=== PATIENT | female | born 1975 | race Caucasian/White ===

== ENCOUNTER 2018-02-07 11:21 | Emergency (ER) | payer BC ==
[2018-02-07 11:29] VITALS: BP 135/83; PULSE 71; TEMP 98.1; BMI 27.8
--- NOTE | 2018-02-07 12:07 | PDOC ---
History of Present Illness - General Chief Complaint: Headache Stated Complaint: HEAD PAIN Time Seen by Provider: 02/07/18 11:32 History Source: Patient Exam Limitations: No Limitations - History of Present Illness Initial Comments: 02/07/18 12:03 42 yr female with head injury 7 weeks ago states she has continued headaches left side of head. Pt has history of anemia. Severity: Yes: moderate Past History - Past Medical History Allergies/Adverse Reactions: Allergies Allergy/AdvReac Type Severity Reaction Status Date / Time No Known Allergies Allergy Verified 02/07/18 11:29 Home Medications: Ambulatory Orders NK [No Known Home Medication] 02/07/18 CVA: No COPD: No Other medical history: anemia, thyroid disease - Surgical History Abdominal Surgery: Yes (gastric sleeve) - Suicide/Smoking/Psychosocial Hx Smoking History: Never smoked Information on smoking cessation initiated: Yes Hx Alcohol Use: No Drug/Substance Use Hx: No Substance Use Type: None Neuro Specific PMHX - Complaint Specific PMHX Glaucoma: No Herniated Disk: No Laminectomy: No Migraine: No Multiple Sclerosis: No Neuropathy: No TIA: No Review of Systems - Review of Systems Able to Perform ROS?: Yes Is the patient limited [place]an proficient: No Constitutional: No: Symptoms Reported HEENTM: No: Symptoms Reported Respiratory: No: Symptoms reported Cardiac (ROS): No: Symptoms Reported ABD/GI: No: Symptoms Reported : No: Symptoms Reported Musculoskeletal: No: Symptoms Reported Integumentary: No: Symptoms Reported Neurological: Yes: Symptoms reported, Headache *Physical Exam - Vital Signs Last Vital Signs Temp Pulse Resp BP Pulse Ox 98.1 F 71 18 135/83 98 02/07/18 11:26 02/07/18 11:26 02/07/18 11:26 02/07/18 11:26 02/07/18 11:26 - Physical Exam General Appearance: Yes: Nourished, Appropriately Dressed HEENT: positive: EOMI, ALLEN, Normal ENT Inspection, TMs Normal, Pharynx Normal, Rhinorrhea (clear ) Neck: positive: Supple Respiratory/Chest: positive: Lungs Clear, Normal Breath Sounds Cardiovascular: positive: Regular Rhythm, Regular Rate Gastrointestinal/Abdominal: positive: Normal Bowel Sounds, Soft. negative: Tender Musculoskeletal: positive: Normal Inspection Extremity: positive: Normal Capillary Refill, Normal Inspection, Normal Range of Motion Integumentary: positive: Normal Color, Dry, Warm Neurologic: positive: Fully Oriented, Alert, Normal Mood/Affect, Normal Response , Motor Strength 5/5 Medical Decision Making - Medical Decision Making 02/07/18 12:05 cc: headache after hitting head on the wall 7 weeks ago no LOC pt was dizzy from her anemia prior to the fall pt has continued headache "soreness to scalp left side" since the headache neg nausea or vomiting *DC/Admit/Observation/Transfer Diagnosis at time of Disposition: Headache Qualifiers: Headache type: unspecified Headache chronicity pattern: acute headache Intractability: not intractable Qualified Code(s): R51 - Headache - Discharge Dispostion Disposition: HOME Condition at time of disposition: Good - Referrals Referrals: Rufino Velázquez MD [Staff Physician] - Timoteo Sandoval MD [Staff Physician] - - Patient Instructions Additional Instructions: follow with the neurologist if symptoms continue take tylenol 650mg every 4-6hrs for headache as needed if you are suffering from seasonal allergies you can use Rhinicort or Flonase ( sold over the counter) please follow with your primary care doctor or with the group listed below for further care return to ER for any worsening symptoms - Post Discharge Activity
== END 2018-02-07 13:34 | disposition home or self-care (01) ==
LOC: JERFT 11:21
DX: R51 Headache (principal); W22.01XA Walked into wall, initial encounter; Y93.89 Activity, other specified; Y92.9 Unspecified place or not applicable
CPT/HCPCS: 70450-TC; 84703; 99281-25

== ENCOUNTER 2018-05-16 11:33 | Emergency (ER) | payer BC ==
[2018-05-16 11:39] VITALS: BP 123/57; PULSE 80; TEMP 98; BMI 27.6
[2018-05-16] MEDS ORDERED: KETOROLAC TROMETHAMINE 60 MG/2 ML VIAL IM ONE (12:44)
--- NOTE | 2018-05-16 12:50 | PDOC ---
History of Present Illness - General Chief Complaint: Pain Stated Complaint: Left armpit pain, feeling anxious about it Time Seen by Provider: 05/16/18 12:31 History Source: Patient Exam Limitations: No Limitations - History of Present Illness Initial Comments: 05/16/18 12:45 43 yr female history of anemia, anxiety, hypothryoid states one week pain to left shoulder upper back and neck worse at night when lying down. no nausea no chest pain no sob. Past History - Past Medical History Allergies/Adverse Reactions: Allergies Allergy/AdvReac Type Severity Reaction Status Date / Time No Known Allergies Allergy Verified 05/16/18 11:39 Home Medications: Ambulatory Orders Diazepam [Valium] 5 mg PO Q8H PRN #12 tablet MDD 15mg 05/16/18 Naproxen [Naprosyn] 500 mg PO BID PRN #20 tablet 05/16/18 CVA: No COPD: No Thyroid Disease: Yes - Surgical History Abdominal Surgery: Yes (gastric sleeve, tubal ligation) - Suicide/Smoking/Psychosocial Hx Smoking History: Never smoked Information on smoking cessation initiated: No Hx Alcohol Use: No Drug/Substance Use Hx: No Substance Use Type: None *Physical Exam - Vital Signs Last Vital Signs Temp Pulse Resp BP Pulse Ox 98 F 80 17 123/57 L 100 05/16/18 11:36 05/16/18 11:36 05/16/18 11:36 05/16/18 11:36 05/16/18 11:36 - Physical Exam General Appearance: Yes: Nourished, Appropriately Dressed HEENT: positive: EOMI, ALLEN Neck: positive: Supple, Tender lateral (left trapezius muscle TTP). negative: Tender Respiratory/Chest: positive: Lungs Clear, Normal Breath Sounds Gastrointestinal/Abdominal: positive: Normal Bowel Sounds, Soft Musculoskeletal: positive: Normal Inspection Extremity: positive: Normal Capillary Refill, Normal Range of Motion, Tender ( anterior shoulder , reproducable with movement and to touch to the posterior shoulder to upper back muscles , nv intact) Integumentary: positive: Normal Color, Dry, Warm Neurologic: positive: Fully Oriented, Alert, Normal Mood/Affect, Normal Response , Motor Strength 5/5 Moderate Sedation - Procedure Monitoring Vital Signs: Procedure Monitoring Vital Signs Temperature 98 F 05/16/18 11:36 Pulse Rate 80 05/16/18 11:36 Respiratory Rate 17 05/16/18 11:36 Blood Pressure 123/57 L 05/16/18 11:36 O2 Sat by Pulse Oximetry (%) 100 05/16/18 11:36 Medical Decision Making - Medical Decision Making 05/16/18 12:50 cc: left shoulder pain to neck upper back one week intermittent worse at night took motrin with some relief, relieved after hot shower worse at night reproducable to touch will treat for muscle spasm toradol now dc with valium and naprosyn follow up with ortho *DC/Admit/Observation/Transfer Diagnosis at time of Disposition: Muscle spasms of neck Shoulder pain, left Qualifiers: Chronicity: acute Qualified Code(s): M25.512 - Pain in left shoulder - Discharge Dispostion Disposition: HOME Condition at time of disposition: Good - Prescriptions Prescriptions: Diazepam [Valium] 5 mg PO Q8H PRN #12 tablet MDD 15mg PRN Reason: Muscle Spasms Naproxen [Naprosyn] 500 mg PO BID PRN #20 tablet PRN Reason: Pain - Referrals Referrals: Danyel Balbuena MD [Staff Physician] - - Patient Instructions Printed Discharge Instructions: DI for Cervical Radiculopathy Additional Instructions: take the medications as prescribed apply heating pad to neck and upper back often every few hours for 30 minutes sleep without a pillow if that helps your symptoms follow with the orthopedist if symptoms do not improve or worsen - Post Discharge Activity
[2018-05-16] MEDS ORDERED: KETOROLAC TROMETHAMINE 60 MG/2 ML VIAL ONE (12:59)
== END 2018-05-16 13:07 | disposition home or self-care (01) ==
LOC: JERFT 11:33
PROC: 3E0233Z Introduction of Anti-inflammatory into Muscle, Percutaneous Approach (ICD-10-PCS; principal; 2018-05-16)
DX: M62.838 Other muscle spasm (principal); M25.512 Pain in left shoulder; E03.9 Hypothyroidism, unspecified; D64.9 Anemia, unspecified; F41.9 Anxiety disorder, unspecified
CPT/HCPCS: 99281-25

== ENCOUNTER 2018-05-25 20:52 | Emergency (ER) | payer BC ==
[2018-05-25 22:26] VITALS: BP 130/67; PULSE 77; TEMP 98.5; BMI 27.8
--- NOTE | 2018-05-25 22:58 | PDOC ---
History of Present Illness - General History Source: Patient Exam Limitations: No Limitations - History of Present Illness Initial Comments: 05/25/18 23:04 43YOF with a PMH of iron deficiency anemia, anxiety, and hypothyroidism presenting with epigastric pain since yesterday. Patient states the epigastric pain is nonradiating, that began in the setting of being upset, which was a 7/ 10 in severity then but is now a 5/10. Patient noticed the epigastric pain was exacerbated after drinking orange juice but improved after drinking milk. Patient does not currently have a PCP. Patient was seen in this ED for left sided musculoskeletal pain on 05/16. Allergies: NKDA Surgeries: Gastric sleeve in 2013 Social history: No reported alcohol, drug or cigarette use. <Bella West - Last Filed: 05/25/18 23:46> <Barbara Vee - Last Filed: 05/26/18 01:38> - General Chief Complaint: Pain Stated Complaint: ABD PAIN Time Seen by Provider: 05/25/18 22:58 Past History <Bella West - Last Filed: 05/25/18 23:46> - Past Medical History CVA: No COPD: No Thyroid Disease: Yes - Surgical History Abdominal Surgery: Yes (gastric sleeve, tubal ligation) - Suicide/Smoking/Psychosocial Hx Smoking History: Never smoked Hx Alcohol Use: No Drug/Substance Use Hx: No Substance Use Type: None <Barbara Vee - Last Filed: 05/26/18 01:38> - Past Medical History Allergies/Adverse Reactions: Allergies Allergy/AdvReac Type Severity Reaction Status Date / Time No Known Allergies Allergy Verified 05/26/18 00:37 Home Medications: Ambulatory Orders Levothyroxine [Synthroid -] 150 mcg PO DAILY 05/25/18 Review of Systems - Review of Systems Able to Perform ROS?: Yes Comments:: 05/25/18 23:47 ADULT ROS GENERAL/CONSTITUTIONAL: No fever or chills. No weakness. HEAD, EYES, EARS, NOSE AND THROAT: No change in vision. No ear pain or discharge. No sore throat. CARDIOVASCULAR: No chest pain or shortness of breath. RESPIRATORY: No cough, wheezing, or hemoptysis. GASTROINTESTINAL: No nausea, vomiting, diarrhea or constipation. (+) Epigastric pain. GENITOURINARY: No dysuria, frequency, or change in urination. MUSCULOSKELETAL: No joint or muscle swelling or pain. No neck or back pain. SKIN: No rash NEUROLOGIC: No headache, vertigo, loss of consciousness, or change in strength/ sensation. ENDOCRINE: No increased thirst. No abnormal weight change. HEMATOLOGIC/LYMPHATIC: No anemia, easy bleeding, or history of blood clots. ALLERGIC/IMMUNOLOGIC: No hives or skin allergy. <Bella West - Last Filed: 05/25/18 23:46> *Physical Exam - Vital Signs Last Vital Signs Temp Pulse Resp BP Pulse Ox 98.5 F 77 19 130/67 100 05/25/18 22:23 05/25/18 22:23 05/25/18 22:23 05/25/18 22:23 05/25/18 22:23 - Physical Exam Comments: 05/25/18 23:46 ADULT EXAM GENERAL: Awake, alert, and fully oriented, in no acute distress HEAD: No signs of trauma LUNGS: Breath sounds equal, clear to auscultation bilaterally. No wheezes, and no crackles HEART: Regular rate and rhythm, normal S1 and S2, no murmurs, rubs or gallops ABDOMEN: (+) Epigastric tenderness. Soft, normoactive bowel sounds. No guarding , no rebound. No masses EXTREMITIES: Normal range of motion, no edema. No clubbing or cyanosis. No cords, erythema, or tenderness NEUROLOGICAL: Cranial nerves II through XII grossly intact. SKIN: Warm, Dry, normal turgor, no rashes or lesions noted. <Bella West - Last Filed: 05/25/18 23:46> - Vital Signs Last Vital Signs Temp Pulse Resp BP Pulse Ox 98.5 F 77 19 130/67 100 05/25/18 22:23 05/25/18 22:23 05/25/18 22:23 05/25/18 22:23 05/25/18 22:23 <Barbara Vee - Last Filed: 05/26/18 01:38> Moderate Sedation - Procedure Monitoring Vital Signs: Procedure Monitoring Vital Signs Temperature 98.5 F 05/25/18 22:23 Pulse Rate 77 05/25/18 22:23 Respiratory Rate 19 05/25/18 22:23 Blood Pressure 130/67 05/25/18 22:23 O2 Sat by Pulse Oximetry (%) 100 05/25/18 22:23 <Bella West - Last Filed: 05/25/18 23:46> - Procedure Monitoring Vital Signs: Procedure Monitoring Vital Signs Temperature 98.5 F 05/25/18 22:23 Pulse Rate 77 05/25/18 22:23 Respiratory Rate 19 05/25/18 22:23 Blood Pressure 130/67 05/25/18 22:23 O2 Sat by Pulse Oximetry (%) 100 05/25/18 22:23 <Barbara Vee - Last Filed: 05/26/18 01:38> ED Treatment Course - LABORATORY CBC & Chemistry Diagram: 05/25/18 23:10 05/25/18 23:10 <Bella West - Last Filed: 05/25/18 23:46> - LABORATORY CBC & Chemistry Diagram: 05/25/18 23:10 05/25/18 23:10 <Barbara Vee - Last Filed: 05/26/18 01:38> Medical Decision Making - Medical Decision Making 05/26/18 00:10 Pt has known anemia; she is guaiac negative. 05/26/18 01:36 Patient Name: ZOILA JOSEPH THIS IS A PRELIMINARY REPORT FROM [facility] DATE OF SERVICE: 2018-05-25 23:51:19 IMAGES: 43 EXAM: ULTRASOUND ABDOMEN INCOMPLETE Unremarkable gallbladder, right kidney and visualized aorta and pancreas. Minimal hepatomegaly. Normal common duct diameter, 4 mm. THIS DOCUMENT HAS BEEN ELECTRONICALLY SIGNED <Barbara Vee - Last Filed: 05/26/18 01:38> *DC/Admit/Observation/Transfer - Attestations Scribe Attestion: 05/25/18 23:47 Documentation prepared by Bella West, acting as medical collections representative for Barbara Vee MD <Bella West - Last Filed: 05/25/18 23:46> - Discharge Dispostion Decision to Admit order: No <Barbara Vee - Robert Filed: 05/26/18 01:38> Diagnosis at time of Disposition: Anxiety, Anemia - Discharge Dispostion Disposition: HOME Condition at time of disposition: Stable - Patient Instructions Printed Discharge Instructions: Anemia, DI for Anxiety -- Adult
[2018-05-25] MEDS ORDERED: MAG HYDROX/AL HYDROX/SIMETH 30 ML UNIT-DOSE CUP PO ONE (23:01)
[2018-05-25] MEDS ORDERED: MAG HYDROX/AL HYDROX/SIMETH 30 ML UNIT-DOSE CUP ONE (23:05)
[2018-05-25 23:21] LABS: BASO % 0.6 % (0-2.0); EOS % 0.8 % (0-4.5); HEMATOCRIT 23.3 % (32.4-45.2); HEMOGLOBIN 7.2 GM/dL (10.7-15.3); MCHC 31.1 g/dl (32.0-36.0); MEAN CELL VOLUME 62.8 fl (80-96); MEAN PLT VOLUME 8.2 fl (7.5-11.1); MONO % 7.9 % (3.8-10.2); NEUT % 50.7 % (42.8-82.8); PLATELET COUNT 307 K/MM3 (134-434); RDW 19.9 % (11.6-15.6); WHITE BLOOD COUNT 4.7 K/mm3 (4.0-10.0)
[2018-05-25 23:25] LABS: MCH 19.6 pg (25.7-33.7)
[2018-05-25 23:49] LABS: ALBUMIN 3.5 g/dl (3.4-5.0); BILIRUBIN,TOTAL 0.2 mg/dL (0.2-1); BLOOD UREA NITROGEN 16 mg/dL (7-18); CALCIUM 8.6 mg/dL (8.5-10.1); CHLORIDE 106 mmol/L (98-107); CREATININE 0.6 mg/dL (0.55-1.3); GLUCOSE,RANDOM 114 mg/dL (74-106); POTASSIUM 3.9 mmol/L (3.5-5.1); SGOT/AST 14 U/L (15-37); SGPT/ALT 14 U/L (13-61); SODIUM 140 mmol/L (136-145); TOT PROT 7.4 g/dl (6.4-8.2)
[2018-05-25 23:50] LABS: ALK PHOS 48 U/L (45-117); ANION GAP 5 MMOL/L (8-16); CO2 29 mmol/L (21-32)
[2018-05-25 23:56] LABS: ANISOCYTOSIS 1+; PLATELET ESTIMATE ADEQUATE
--- NOTE | 2018-05-26 13:26 | EKG ---
Test Reason : Blood Pressure : / mmHG Vent. Rate : 071 BPM Atrial Rate : 071 BPM P-R Int : 136 ms QRS Dur : 116 ms QT Int : 400 ms P-R-T Axes : 034 017 027 degrees QTc Int : 434 ms NORMAL SINUS RHYTHM NORMAL ECG NO PREVIOUS ECGS AVAILABLE Confirmed by ANTONIO VASQUES MD ([id number]) on 05/26/2018 1:25:39 PM Referred By: Confirmed By:ANTONIO VASQUES MD
== END 2018-05-26 01:41 | disposition home or self-care (01) ==
LOC: JER 20:52
DX: R10.13 Epigastric pain (principal); D50.9 Iron deficiency anemia, unspecified; F41.9 Anxiety disorder, unspecified; E03.9 Hypothyroidism, unspecified
CPT/HCPCS: 36415; 76705-TC; 80053; 82272; 82550; 84484; 85025; 93005; 93010; 99282-25

== ENCOUNTER 2018-07-26 13:44 | Emergency (ER) | payer BC ==
[2018-07-26 13:53] VITALS: BP 141/90; PULSE 83; TEMP 97.9; BMI 26.6
--- NOTE | 2018-07-26 14:40 | PDOC ---
History of Present Illness - General Chief Complaint: Palpitations Stated Complaint: LIGHT HEADED/SOB Time Seen by Provider: 07/26/18 14:11 History Source: Patient Exam Limitations: No Limitations - History of Present Illness Initial Comments: 07/26/18 18:46 Patient is a 43-year-old female with past medical history of anemia, hypothyroid who presents to the emergency department for an episode of palpitations. Patient states that she was on the train this morning going to work and she had an episode of palpitations. She states that her heart started beating very hard. She states that the episode was short and resolved on its own however she persisted the ER for evaluation at this time. Denies fevers, chills, shortness of breath, difficulty breathing, chest pain, edema, nausea, vomiting and diarrhea. Past History - Travel Traveled outside of the country in the last 30 days: No Close contact w/someone who was outside of country & ill: No - Past Medical History Allergies/Adverse Reactions: Allergies Allergy/AdvReac Type Severity Reaction Status Date / Time No Known Allergies Allergy Verified 07/26/18 13:50 Home Medications: Ambulatory Orders Levothyroxine [Synthroid -] 150 mcg PO DAILY 05/25/18 Ferrous Sulfate 325 mg PO DAILY #14 tablet 07/26/18 Ferrous Sulfate [Iron] 325 mg PO DAILY 07/26/18 Anemia: Yes CVA: No COPD: No Thyroid Disease: Yes - Surgical History Abdominal Surgery: Yes (gastric sleeve, tubal ligation) - Suicide/Smoking/Psychosocial Hx Smoking History: Smoker current status UNK Hx Alcohol Use: No Drug/Substance Use Hx: No Substance Use Type: None Review of Systems - Review of Systems Able to Perform ROS?: Yes Comments:: 07/26/18 17:36 CONSTITUTIONAL: Absent: fever, chills, diaphoresis, generalized weakness, malaise, loss of appetite HEENT: Absent: rhinorrhea, nasal congestion, throat pain, throat swelling, difficulty swallowing, mouth swelling, ear pain, eye pain, visual Changes CARDIOVASCULAR: Present: palpitations Absent: chest pain, loss of consciousness,irregular heart rate, peripheral edema RESPIRATORY: Absent: cough, shortness of breath, dyspnea with exertion, orthopnea, wheezing, stridor, hemoptysis GASTROINTESTINAL: Absent: abdominal pain, abdominal distension, nausea, vomiting, diarrhea, constipation, melena, hematochezia GENITOURINARY: Absent: dysuria, frequency, urgency, hesitancy, hematuria, flank pain, genital pain MUSCULOSKELETAL: Absent: myalgia, arthralgia, joint swelling SKIN: Absent: rash, itching, pallor HEMATOLOGIC/IMMUNOLOGIC: Absent: easy bleeding, easy bruising, lymphadenopathy, frequent infections ENDOCRINE: Absent: unexplained weight gain, unexplained weight loss, heat intolerance, cold intolerance NEUROLOGIC: Absent: headache, focal weakness or paresthesias, dizziness, unsteady gait, seizure, mental status changes, bladder or bowel incontinence PSYCHIATRIC: Present: anxiety Absent: depression, suicidal or homicidal ideation, hallucinations. Is the patient limited [place]an proficient: No *Physical Exam - Vital Signs Last Vital Signs Temp Pulse Resp BP Pulse Ox 97.9 F 83 18 141/90 100 07/26/18 13:51 07/26/18 13:51 07/26/18 13:51 07/26/18 13:51 07/26/18 13:51 - Physical Exam Comments: 07/26/18 17:37 GENERAL: Well developed, well nourished. Awake and alert. No acute distress. HEENT: Normocephalic, atraumatic. PERRLA, EOMI. No conjunctival pallor. Sclera are non- icteric. Moist mucous membranes. Oropharynx is clear. NECK: Supple. Full ROM. No JVD. Carotid pulses 2+ and symmetric, without bruits. No thyromegaly. No lymphadenopathy. CARDIOVASCULAR: Regular rate and rhythm. No murmurs, rubs, or gallops. Distal pulses are 2+ and symmetric. PULMONARY: No evidence of respiratory distress. Lungs clear to auscultation bilaterally. No wheezing, rales or rhonchi. ABDOMINAL: Soft. Non-tender. Non-distended. No rebound or guarding. No organomegaly. Normoactive bowel sounds. MUSCULOSKELETAL Normal range of motion at all joints. No bony deformities or tenderness. No CVA tenderness. EXTREMITIES: No cyanosis. No clubbing. No edema. No calf tenderness. SKIN: Warm and dry. Normal capillary refill. No rashes. No jaundice. NEUROLOGICAL: Alert, awake, appropriate. Cranial nerves 2-12 intact. No deficits to light touch and temperature in face, upper extremities and lower extremities. No motor deficits in the in face, upper extremities and lower extremities. Normoreflexic in the upper and lower extremities. Normal speech. Toes are down- going bilaterally. Gait is normal without ataxia. PSYCHIATRIC: Cooperative. Good eye contact. Appropriate mood and affect. Moderate Sedation - Procedure Monitoring Vital Signs: Procedure Monitoring Vital Signs Temperature 97.9 F 07/26/18 13:51 Pulse Rate 83 07/26/18 13:51 Respiratory Rate 18 07/26/18 13:51 Blood Pressure 141/90 07/26/18 13:51 O2 Sat by Pulse Oximetry (%) 100 07/26/18 13:51 ED Treatment Course - LABORATORY CBC & Chemistry Diagram: 07/26/18 15:53 07/26/18 15:53 Medical Decision Making - Medical Decision Making 07/26/18 18:48 Patient is a 43-year-old female who presents to the ER for after an episode of palpitations this morning. The palpitations have since resolved. On exam patient very anxious, vital signs are stable. Heart rate 83 normal blood pressure. EKG: Rate 75 bpm, normal sinus rhythm. QTC 446. Normal axis. No acute ST-T wave changes. Basic labs and urine were obtained. Labs significant for an deficiency anemia. Hemoglobin 8.7 patient not symptomatic at this time. TSH is normal. Troponin is negative. Suspect that this is either do to anxiety or a string of irregular heartbeats. We'll refer patient to primary care and cardiology as she is new to the area Discharge home I discussed the physical exam findings, ancillary test results and final diagnoses with the patient. I answered all of the patient's questions. The patient was satisfied with the care received and felt comfortable with the discharge plan and treatment plan. The Patient agrees to follow up with the primary care physician/specialist within 24-72 hours. Return precautions were given. *DC/Admit/Observation/Transfer Diagnosis at time of Disposition: Palpitations - Discharge Dispostion Disposition: HOME Condition at time of disposition: Stable Decision to Admit order: No - Prescriptions Prescriptions: Ferrous Sulfate 325 mg PO DAILY #14 tablet - Referrals Referrals: Timoteo Sandoval MD [Staff Physician] - Maico Zhang MD [Staff Physician] - - Patient Instructions Printed Discharge Instructions: DI for Palpitations Additional Instructions: You were evaluated today for palpitations. Your EKG and chest x-ray were normal. Your lab work showed iron deficiency anemia. Please continue your iron supplements as previously prescribed.Your other blood work was normal. This includes your thyroid hormone. Please follow up with primary care. A referral has been provided for you to see Dr. Sandoval. Please follow up with cardiology regarding the palpitations. A referral for Dr. Zhang has been provided. Return to the ER for worsening palpitations, difficulty breathing, shortness of breath, chest pain, or if you have any changes in your symptoms. - Post Discharge Activity Forms/Work/School Notes: Back to Work
--- NOTE | 2018-07-26 14:43 | PDOC ---
*Physical Exam - Vital Signs Last Vital Signs Temp Pulse Resp BP Pulse Ox 97.9 F 83 18 141/90 100 07/26/18 13:51 07/26/18 13:51 07/26/18 13:51 07/26/18 13:51 07/26/18 13:51 ED Treatment Course - LABORATORY CBC & Chemistry Diagram: 07/26/18 15:53 07/26/18 15:53 Medical Decision Making - Medical Decision Making 07/26/18 14:43 Pt seen by Midlevel Provider under my direct supervision Ancillary studies reviewed Laboratory Tests 05/25/18 07/26/18 07/26/18 23:10 15:53 15:53 WBC 4.7 4.2 Hgb 7.2 L 8.6 L Hct 23.3 L 27.7 L D Plt Count 307 232 D BUN 12 Creatinine 0.6 Creatine Kinase Troponin I TSH 2.88 Urine HCG, Qual 07/26/18 07/26/18 15:53 16:06 WBC Hgb Hct Plt Count BUN Creatinine Creatine Kinase 47 Troponin I < 0.02 TSH Urine HCG, Qual Negative I agree with plan as outlined by Midlevel Provider *DC/Admit/Observation/Transfer Diagnosis at time of Disposition: Palpitations - Discharge Dispostion Disposition: HOME Condition at time of disposition: Stable - Prescriptions Prescriptions: Ferrous Sulfate 325 mg PO DAILY #14 tablet - Referrals Referrals: Tmioteo Sandoval MD [Staff Physician] - Maico Zhang MD [Staff Physician] - - Patient Instructions Printed Discharge Instructions: DI for Palpitations Additional Instructions: You were evaluated today for palpitations. Your EKG and chest x-ray were normal. Your lab work showed iron deficiency anemia. Please continue your iron supplements as previously prescribed.Your other blood work was normal. This includes your thyroid hormone. Please follow up with primary care. A referral has been provided for you to see Dr. Sandoval. Please follow up with cardiology regarding the palpitations. A referral for Dr. Zhang has been provided. Return to the ER for worsening palpitations, difficulty breathing, shortness of breath, chest pain, or if you have any changes in your symptoms. - Post Discharge Activity Forms/Work/School Notes: Back to Work
[2018-07-26 16:10] LABS: BASO % 0.8 % (0-2.0); EOS % 0.3 % (0-4.5); HEMATOCRIT 27.7 % (32.4-45.2); HEMOGLOBIN 8.6 GM/dL (10.7-15.3); LYMPH % 28.3 % (8-40); MCH 20.4 pg (25.7-33.7); MCHC 31.1 g/dl (32.0-36.0); MEAN CELL VOLUME 65.6 fl (80-96); MEAN PLT VOLUME 8.9 fl (7.5-11.1); MONO % 8.5 % (3.8-10.2); NEUT % 62.1 % (42.8-82.8); PLATELET COUNT 232 K/MM3 (134-434); RBC 4.21 M/mm3 (3.60-5.2); RDW 21.6 % (11.6-15.6); WHITE BLOOD COUNT 4.2 K/mm3 (4.0-10.0)
[2018-07-26 16:31] LABS: URINE APPEARANCE CLEAR; URINE BILIRUBIN NEGATIVE (<2.0 mg/dL); URINE COLOR LTYELLOW; URINE GLUCOSE (UA) NEGATIVE (NEGATIVE); URINE KETONE NEGATIVE (NEGATIVE); URINE LEUK ESTERASE NEGATIVE (NEGATIVE); URINE NITRITE NEGATIVE (NEGATIVE); URINE PROTEIN NEGATIVE (NEGATIVE); URINE UROBILINOGEN NEGATIVE mg/dL (0.2-1.0)
[2018-07-26 16:33] LABS: HCG,QUALITATIVE URINE Negative
[2018-07-26 16:43] LABS: ANISOCYTOSIS 2+; PLATELET ESTIMATE ADEQUATE
[2018-07-26 16:53] LABS: ALBUMIN 3.8 g/dl (3.4-5.0); ALK PHOS 40 U/L (45-117); ANION GAP 3 MMOL/L (8-16); BILIRUBIN,TOTAL 0.2 mg/dL (0.2-1); BLOOD UREA NITROGEN 12 mg/dL (7-18); CALCIUM 8.7 mg/dL (8.5-10.1); CHLORIDE 104 mmol/L (98-107); CO2 30 mmol/L (21-32); CREATININE 0.6 mg/dL (0.55-1.3); GLUCOSE,RANDOM 90 mg/dL (74-106); SGOT/AST 18 U/L (15-37); SGPT/ALT 20 U/L (13-61); SODIUM 137 mmol/L (136-145); TOT PROT 8.6 g/dl (6.4-8.2)
--- NOTE | 2018-07-27 10:31 | EKG ---
Test Reason : Blood Pressure : / mmHG Vent. Rate : 075 BPM Atrial Rate : 075 BPM P-R Int : 136 ms QRS Dur : 118 ms QT Int : 400 ms P-R-T Axes : 050 028 053 degrees QTc Int : 446 ms NORMAL SINUS RHYTHM NON-SPECIFIC INTRA-VENTRICULAR CONDUCTION DELAY WHEN COMPARED WITH ECG OF 26-MAY-2018 00:33, NO SIGNIFICANT CHANGE WAS FOUND Confirmed by AIDEN AHUJA MD ([id number]) on 07/27/2018 10:30:55 AM Referred By: Confirmed By:AIDEN AHUJA MD
== END 2018-07-26 18:36 | disposition home or self-care (01) ==
LOC: JER 13:44
DX: R00.2 Palpitations (principal); E03.9 Hypothyroidism, unspecified; D64.9 Anemia, unspecified
CPT/HCPCS: 36415; 71046-TC-FY; 80053; 81003; 82550; 83540; 83735; 84443; 84484; 84703; 85025; 93005; 93010; 99283-25

== ENCOUNTER 2018-11-14 01:18 | Emergency (ER) | payer BC ==
[2018-11-14 01:27] VITALS: BP 126/65; PULSE 74; TEMP 98.3; BMI 29.0
--- NOTE | 2018-11-14 01:37 | PDOC ---
*Physical Exam - Vital Signs Last Vital Signs Temp Pulse Resp BP Pulse Ox 98.3 F 74 20 126/65 100 11/14/18 01:20 11/14/18 01:20 11/14/18 01:20 11/14/18 01:20 11/14/18 01:20 ED Treatment Course - LABORATORY CBC & Chemistry Diagram: 11/14/18 02:40 11/14/18 02:40 Medical Decision Making - Medical Decision Making 11/14/18 01:37 Patient seen by the advanced practice provider under my direct supervision. Ancillary testing reviewed as necessary. I agree with plan as outlined by the advanced practice provider. *DC/Admit/Observation/Transfer Diagnosis at time of Disposition: Dyspnea - Referrals - Patient Instructions - Post Discharge Activity
--- NOTE | 2018-11-14 01:39 | PDOC ---
History of Present Illness - General Chief Complaint: Nausea Stated Complaint: WEAK/ SHORTNESS OF BREATH Time Seen by Provider: 11/14/18 01:34 History Source: Patient - History of Present Illness Initial Comments: 11/14/18 03:59 43 year old female with left sided chest pain and shortness of breath prior to arrival , now reports pleuritic pain and heaviness to chest. patient reports that she stopped her thyroid medication 2 months ago. unsure if symptoms are related to this. patient reports that she has multiple stressors which gives her some anxiety. denies headache, diaphoresis, Past History - Past Medical History Allergies/Adverse Reactions: Allergies Allergy/AdvReac Type Severity Reaction Status Date / Time No Known Allergies Allergy Verified 11/14/18 01:28 Home Medications: Ambulatory Orders Levothyroxine [Synthroid -] 150 mcg PO DAILY 05/25/18 Ferrous Sulfate 325 mg PO DAILY #14 tablet 07/26/18 Ferrous Sulfate [Iron] 325 mg PO DAILY 07/26/18 Anemia: Yes CVA: No COPD: No Thyroid Disease: Yes - Surgical History Abdominal Surgery: Yes (gastric sleeve, tubal ligation) - Suicide/Smoking/Psychosocial Hx Smoking History: Never smoked Have you smoked in the past 12 months: No Information on smoking cessation initiated: No Hx Alcohol Use: No Drug/Substance Use Hx: No Substance Use Type: None Review of Systems - Review of Systems Able to Perform ROS?: Yes Is the patient limited Armenian proficient: No Constitutional: No: Symptoms Reported, See HPI, Chills, Diaphoresis, Fever, Loss of Appetite, Malaise, Night Sweats, Weakness, Weight Stable, Unintentional Wgt. Loss, Unexplained wgt Loss, Other Respiratory: Yes: Shortness of Breath. No: Symptoms reported, See HPI, Cough, Orthopnea, SOB with Exertion, SOB at Rest, Stridor, Wheezing, Productive cough, Hemoptysis, Other Cardiac (ROS): Yes: Chest Pain. No: Symptoms Reported, See HPI, Edema, Irregular Heart Rate, Lightheadedness, Palpitations, Syncope, Chest Tightness, Other ABD/GI: No: Symptoms Reported, See HPI, Abdominal Distended, Abd. Pain w/ defecation, Blood Streaked Bowels, Constipated, Diarrhea, Difficulty Swallowing , Nausea, Poor Appetite, Poor Fluid Intake, Rectal Bleeding, Vomiting, Indigestion, Abdominal cramping, Tarry Stools, Other *Physical Exam - Vital Signs Last Vital Signs Temp Pulse Resp BP Pulse Ox 98.3 F 74 20 126/65 100 11/14/18 01:20 11/14/18 01:20 11/14/18 01:20 11/14/18 01:11/14/18 01:20 - Physical Exam General Appearance: Yes: Appropriately Dressed Respiratory/Chest: positive: Lungs Clear, Normal Breath Sounds Cardiovascular: negative: Regular Rhythm, Regular Rate Gastrointestinal/Abdominal: positive: Normal Bowel Sounds, Soft. negative: Tender Extremity: positive: Normal Capillary Refill, Normal Inspection Integumentary: positive: Normal Color, Dry, Warm Neurologic: positive: Fully Oriented, Alert, Normal Mood/Affect ED Treatment Course - LABORATORY CBC & Chemistry Diagram: 11/14/18 02:40 11/14/18 02:40 Medical Decision Making - Medical Decision Making 11/14/18 04:17 A: Chest pain; shortness of breath ; anxiety? P: cbc cmp CTA CHest d-dimer TSH elevated. 11/14/18 04:51 CTA chest: There is no PE or dissection. Heart size is normal. The trachea and bronchi are patent. There is no pleural or pericardial effusion. The lungs are clear. No fractures identified. Hepatic hypodensities may represent cysts. Status post gastric bypass discussed with patient about close PCP follow up and strict return precautions reviewed with patient *DC/Admit/Observation/Transfer Diagnosis at time of Disposition: Anxiety Dyspnea Qualifiers: Dyspnea type: shortness of breath Qualified Code(s): R06.02 - Shortness of breath Hypothyroidism Qualifiers: Hypothyroidism type: unspecified Qualified Code(s): E03.9 - Hypothyroidism, unspecified - Discharge Dispostion Disposition: HOME Condition at time of disposition: Improved - Referrals - Patient Instructions Printed Discharge Instructions: DI for Anxiety -- Adult Additional Instructions: please follow up with your doctor as soon as possible, you need to restart your thyroid medication . please follow up with your doctor promptly. Additional Instructions: * Please call your personal physician to report your Emergency Department visit and to report your progress, if any. * If there is no improvement in symptoms in 2 days call your physician. * Return to the Emergency Department for any worsening symptoms. - Post Discharge Activity Forms/Work/School Notes: Back to Work
[2018-11-14 02:56] LABS: BASO % 0.5 % (0-2.0); EOS % 1.5 % (0-4.5); HEMATOCRIT 26.7 % (32.4-45.2); HEMOGLOBIN 8.2 GM/dL (10.7-15.3); LYMPH % 39.1 % (8-40); MCH 20.1 pg (25.7-33.7); MCHC 30.6 g/dl (32.0-36.0); MEAN CELL VOLUME 65.7 fl (80-96); MEAN PLT VOLUME 8.7 fl (7.5-11.1); MONO % 12.3 % (3.8-10.2); NEUT % 46.6 % (42.8-82.8); PLATELET COUNT 219 K/MM3 (134-434); RBC 4.06 M/mm3 (3.60-5.2); RDW 19.6 % (11.6-15.6); WHITE BLOOD COUNT 3.6 K/mm3 (4.0-10.0)
[2018-11-14 03:08] LABS: INR 0.99 (0.83-1.09); PROTHROMBIN TIME (PATIENT) 11.7 SEC (9.7-13.0)
[2018-11-14 03:30] LABS: ALBUMIN 3.9 g/dl (3.4-5.0); ALK PHOS 45 U/L (45-117); ANION GAP 4 MMOL/L (8-16); BILIRUBIN,TOTAL 0.2 mg/dL (0.2-1); BLOOD UREA NITROGEN 12.8 mg/dL (7-18); CALCIUM 8.4 mg/dL (8.5-10.1); CHLORIDE 108 mmol/L (98-107); CO2 29 mmol/L (21-32); CREATININE 0.6 mg/dL (0.55-1.3); GLUCOSE,RANDOM 92 mg/dL (74-106); SGOT/AST 13 U/L (15-37); SGPT/ALT 11 U/L (13-61); SODIUM 142 mmol/L (136-145); TOT PROT 7.8 g/dl (6.4-8.2)
--- NOTE | 2018-11-14 08:06 | EKG ---
Test Reason : Blood Pressure : / mmHG Vent. Rate : 060 BPM Atrial Rate : 060 BPM P-R Int : 146 ms QRS Dur : 118 ms QT Int : 430 ms P-R-T Axes : 068 070 066 degrees QTc Int : 430 ms NORMAL SINUS RHYTHM NON-SPECIFIC INTRA-VENTRICULAR CONDUCTION DELAY BORDERLINE ECG WHEN COMPARED WITH ECG OF 26-JUL-2018 13:54, NO SIGNIFICANT CHANGE WAS FOUND Confirmed by DWAINE ALEXANDER, ASHOK ([id number]) on 11/14/2018 8:06:27 AM Referred By: Confirmed By:ASHOK ISIDRO MD
== END 2018-11-14 05:32 | disposition home or self-care (01) ==
LOC: JER 01:18
DX: E03.9 Hypothyroidism, unspecified (principal); Z98.84 Bariatric surgery status; F41.9 Anxiety disorder, unspecified
CPT/HCPCS: 36415; 71275-TC; 80053; 82550; 83735; 84443; 84484; 84703; 85025; 85379; 85610; 93005; 93010; 99281-25

== ENCOUNTER 2019-04-21 10:25 | Emergency (ER) | payer BC, OTHER ==
[2019-04-21 10:36] VITALS: BP 161/77; PULSE 81; TEMP 98.1; BMI 29.7
--- NOTE | 2019-04-21 10:50 | PDOC ---
History of Present Illness - General Chief Complaint: Pain Stated Complaint: PRESSURE/HEAD AND FACE Time Seen by Provider: 04/21/19 10:38 History Source: Patient Past History - Past Medical History Allergies/Adverse Reactions: Allergies Allergy/AdvReac Type Severity Reaction Status Date / Time No Known Allergies Allergy Verified 04/21/19 10:29 Home Medications: Ambulatory Orders Levothyroxine [Synthroid -] 150 mcg PO DAILY 05/25/18 Ferrous Sulfate [Iron] 325 mg PO DAILY 07/26/18 Ibuprofen [Motrin -] 400 mg PO Q6H #20 tablet 04/21/19 Anemia: Yes CVA: No COPD: No Psychiatric Problems: Yes (anxiety) Thyroid Disease: Yes - Surgical History Abdominal Surgery: Yes (gastric sleeve, tubal ligation) - Psycho Social/Smoking Cessation Hx Smoking History: Never smoked Have you smoked in the past 12 months: No Hx Alcohol Use: No Drug/Substance Use Hx: No Substance Use Type: None Neuro Specific PMHX - Complaint Specific PMHX Glaucoma: No Herniated Disk: No Laminectomy: No Migraine: No Multiple Sclerosis: No TIA: No Review of Systems - Review of Systems Musculoskeletal: Yes: Neck Pain Neurological: Yes: Headache. No: Numbness, Tingling, Weakness, Dizziness *Physical Exam - Vital Signs Last Vital Signs Temp Pulse Resp BP Pulse Ox 98.1 F 81 18 161/77 99 04/21/19 10:31 04/21/19 10:31 04/21/19 10:31 04/21/19 10:31 04/21/19 10:31 - Physical Exam General Appearance: Yes: Appropriately Dressed. No: Apparent Distress HEENT: positive: Normal Voice Neck: positive: Tender (to L sternocleidomastoid), Supple Respiratory/Chest: negative: Respiratory Distress Integumentary: positive: Dry, Warm Neurologic: positive: Fully Oriented, Alert, Normal Mood/Affect, Motor Strength 5/5 Medical Decision Making - Medical Decision Making 04/21/19 10:44 44 yo F, h/o hypothyroid, anemia, anxiety, here w/ sided neck pain radiating to head and L periorbital area x several days. No facial pain otherwise and no URI symptoms, fever, chills, dizziness, visual changes, nausea ,vomiting or focal weakness. No trauma. Not taking anything for pain. see exam M/l MSK neck pain No trauma No neuro sxs No infectious ss -Dc w/ pain control and PMD fu as needed Discharge - Discharge Information Problems reviewed: Yes Clinical Impression/Diagnosis: Neck pain Condition: Good Disposition: HOME - Additional Discharge Information Prescriptions: Ibuprofen [Motrin -] 400 mg PO Q6H #20 tablet - Follow up/Referral - Patient Discharge Instructions Patient Printed Discharge Instructions: DI for Headache Additional Instructions: The cause of your pain is most likely musculoskeletal Take motrin as directed If pain persists, please follow up with your PMD - Post Discharge Activity
== END 2019-04-21 10:54 | disposition home or self-care (01) ==
LOC: JER 10:25
DX: M54.2 Cervicalgia (principal); D64.9 Anemia, unspecified; E03.9 Hypothyroidism, unspecified; F41.9 Anxiety disorder, unspecified; Z98.84 Bariatric surgery status; Z98.51 Tubal ligation status
CPT/HCPCS: 99281-25

== ENCOUNTER 2019-07-26 19:44 | Emergency (ER) | payer SELFPAY ==
[2019-07-26 19:52] VITALS: BP 156/78; PULSE 70; TEMP 97.7; BMI 29.0
--- NOTE | 2019-07-26 19:52 | PDOC ---
Rapid Medical Evaluation Chief Complaint: Pain Time Seen by Provider: 07/26/19 19:49 Medical Evaluation: Allergies Allergy/AdvReac Type Severity Reaction Status Date / Time No Known Allergies Allergy Verified 04/21/19 10:29 07/26/19 19:50 Pt c/o: chest palpitation, anxiuos, hx anxiety and recent decrease in synthroid 3 weeks ago Pt on brief exam: vss, appears anxious pt ordered for: labs and ekg Pt to proceed to the ED Discharge Disposition - Diagnosis Palpitations - Referrals - Patient Instructions - Post Discharge Activity
[2019-07-26 20:23] LABS: BASO % 0.6 % (0-2.0); EOS % 0.8 % (0-4.5); HEMATOCRIT 28.4 % (32.4-45.2); HEMOGLOBIN 8.7 GM/dL (10.7-15.3); LYMPH % 39.5 % (8-40); MCH 21.2 pg (25.7-33.7); MCHC 30.8 g/dl (32.0-36.0); MEAN PLT VOLUME 8.8 fl (7.5-11.1); MONO % 9.7 % (3.8-10.2); NEUT % 49.4 % (42.8-82.8); PLATELET COUNT 268 K/MM3 (134-434); RBC 4.11 M/mm3 (3.60-5.2); RDW 22.9 % (11.6-15.6); WHITE BLOOD COUNT 4.8 K/mm3 (4.0-10.0)
[2019-07-26 20:55] LABS: ALBUMIN 3.7 g/dl (3.4-5.0); BILIRUBIN,TOTAL 0.2 mg/dL (0.2-1); CALCIUM 9.2 mg/dL (8.5-10.1); CREATININE 0.7 mg/dL (0.55-1.3); POTASSIUM 3.3 mmol/L (3.5-5.1); TOT PROT 7.4 g/dl (6.4-8.2)
[2019-07-26] MEDS ORDERED: MAG HYDROX/AL HYDROX/SIMETH 30 ML UNIT-DOSE CUP PO ONE (21:02)
[2019-07-26] MEDS ORDERED: FAMOTIDINE 20 MG TABLET PO ONE (21:02)
[2019-07-26 21:08] LABS: ANISOCYTOSIS 3+; PLATELET ESTIMATE ADEQUATE
[2019-07-26] MEDS ORDERED: FAMOTIDINE 20 MG TABLET ONE ×3 (21:22→21:51)
[2019-07-26] MEDS ORDERED: MAG HYDROX/AL HYDROX/SIMETH 30 ML UNIT-DOSE CUP ONE ×2 (21:22→21:51)
--- NOTE | 2019-07-26 22:04 | PDOC ---
History of Present Illness - General Chief Complaint: Pain Stated Complaint: CHEST DISCOMFORT Time Seen by Provider: 07/26/19 19:49 History Source: Patient Exam Limitations: No Limitations Past History - Past Medical History Allergies/Adverse Reactions: Allergies Allergy/AdvReac Type Severity Reaction Status Date / Time No Known Allergies Allergy Verified 07/26/19 19:51 Home Medications: Ambulatory Orders Levothyroxine [Synthroid -] 150 mcg PO DAILY 05/25/18 Ferrous Sulfate [Iron] 325 mg PO DAILY 07/26/18 Ibuprofen [Motrin -] 400 mg PO Q6H #20 tablet 04/21/19 Levothyroxine [Synthroid -] 150 mcg PO DAILY #30 tablet 07/26/19 Anemia: Yes CVA: No COPD: No Psychiatric Problems: Yes (anxiety) Thyroid Disease: Yes - Surgical History Abdominal Surgery: Yes (gastric sleeve, tubal ligation) - Psycho Social/Smoking Cessation Hx Smoking History: Never smoked Have you smoked in the past 12 months: No Hx Alcohol Use: No Drug/Substance Use Hx: No Substance Use Type: None *Physical Exam - Vital Signs Last Vital Signs Temp Pulse Resp BP Pulse Ox 97.7 F 70 18 156/78 100 07/26/19 19:48 07/26/19 19:48 07/26/19 19:48 07/26/19 19:48 07/26/19 19:48 - Physical Exam General Appearance: No: Apparent Distress Respiratory/Chest: positive: Lungs Clear, Normal Breath Sounds. negative: Respiratory Distress Cardiovascular: positive: Regular Rhythm, Regular Rate, S1, S2. negative: Murmur Gastrointestinal/Abdominal: positive: Normal Bowel Sounds, Soft. negative: Tender, Distended, Guarding, Rebound Integumentary: positive: Normal Color Neurologic: positive: Alert Heart Score/ECG Review - History History: Slightly suspicious - Electrocardiogram EKG: Normal - Age Age: </= 45 - Risk Factors Based on the list above the patient has:: No risk factors known - Troponin Troponin: </= normal limit - Score Heart Score - Total: 0 ED Treatment Course - LABORATORY CBC & Chemistry Diagram: 07/26/19 20:00 07/26/19 20:00 - ADDITIONAL ORDERS Additional order review: Laboratory Results 07/26/19 07/26/19 20:00 20:00 Sodium 139 Potassium 3.3 L Chloride 106 Carbon Dioxide 30 Anion Gap 3 L BUN 6.0 L Creatinine 0.7 Est GFR (CKD-EPI)AfAm 122.99 Est GFR (CKD-EPI)NonAf 106.12 Random Glucose 109 H Calcium 9.2 Total Bilirubin 0.2 AST 10 L ALT 11 L Alkaline Phosphatase 47 Creatine Kinase 38 Troponin I < 0.02 Total Protein 7.4 Albumin 3.7 TSH 6.69 H 07/26/19 20:00 RBC 4.11 MCV 69.0 L MCHC 30.8 L RDW 22.9 H MPV 8.8 Neutrophils % 49.4 Lymphocytes % 39.5 Monocytes % 9.7 Eosinophils % 0.8 Basophils % 0.6 - RADIOLOGY Radiology Studies Ordered: Category Date Time Status CHEST PA & LAT [RAD] Stat Radiology 07/26/19 21:02 Taken - Medications Given in the ED: ED Medications Discontinued Medications Generic Name Dose Route Start Last Admin Trade Name Freq PRN Reason Stop Dose Admin Al Hydroxide/Mg Hydroxide 30 ml 07/26/19 21:02 07/26/19 21:53 Mylanta Oral Suspension - PO 07/26/19 21:03 30 ml ONCE ONE Administration Famotidine 20 mg 07/26/19 21:02 07/26/19 21:53 Pepcid - PO 07/26/19 21:03 20 mg ONCE ONE Administration Medical Decision Making - Medical Decision Making 44 y/o F hx hx of depression, anxiety, anemia presents with epigastric burning radiating up to her chest along with left-sided discomfort which started 3 days ago. Mentions also feeling a bit gassy. States she is also been feeling a bit anxious as someone close to her a few days ago from a possible heart attack. States that triggered her anxiety which exacerbated her chest pain. Mentions only time she had this kind of pain was 10 years ago when she was told she had acid reflux. Currently does not take any medications for acid reflux. Has history of gastric sleeve in thousand and 15 and x3. Denies smoking, alcohol, drug use. Family history of father who a thyroid condition. Does not know mother's history. EKG: NSR at 66 bpm, TWI lead V2 CXR wet read negative Abnormal Lab Results 07/26/19 07/26/19 07/26/19 20:00 20:00 20:00 Hgb 8.7 L Hct 28.4 L MCV 69.0 L MCH 21.2 L MCHC 30.8 L RDW 22.9 H Potassium 3.3 L Anion Gap 3 L BUN 6.0 L Random Glucose 109 H AST 10 L ALT 11 L TSH 6.69 H Labs reviewed Notable for anemia for which patient is already taking iron Potassium is borderline low at 3.3 Also notable for TSH of 6.69; patient mentions that she does not take her hypothyroid medication daily because she does not have enough pills so she sometimes skips days before taking her medications; will provide refill for her thyroid medication Feeling better after getting pepcid and maalox HS is 0 Low risk for ACS Likely sxs are combination of anxiety and GERd stable for dc 07/26/19 22:00 Discharge - Discharge Information Problems reviewed: Yes Clinical Impression/Diagnosis: Anxiety GERD (gastroesophageal reflux disease) Qualifiers: Esophagitis presence: esophagitis presence not specified Qualified Code(s): K21.9 - Gastro-esophageal reflux disease without esophagitis Condition: Stable Disposition: HOME - Admission No - Additional Discharge Information Prescriptions: Levothyroxine [Synthroid -] 150 mcg PO DAILY #30 tablet Prescription Drug Monitoring Program (I-STOP) results: I-STOP not reviewed - Follow up/Referral Referrals: Rome Roger DO [Staff Physician] - 2 Days - Patient Discharge Instructions Patient Printed Discharge Instructions: DI for Gastroesophageal Reflux Disease (GERD), GERD Diet Additional Instructions: Thank you for choosing [facility]. It was a pleasure taking care of you. Please be sure to continue taking iron for your anemia Please be sure to take your thyroid medication as well You were sent a refill for your Synthroid You may take Pepcid 20 mg daily for heartburn You refer to GI doctor for further evaluation of your symptoms Return to the Emergency Department if your symptoms worsen or persist or have other concerning symptoms. - Post Discharge Activity
--- NOTE | 2019-07-27 13:29 | EKG ---
Test Reason : Blood Pressure : / mmHG Vent. Rate : 066 BPM Atrial Rate : 066 BPM P-R Int : 128 ms QRS Dur : 112 ms QT Int : 420 ms P-R-T Axes : 034 004 037 degrees QTc Int : 440 ms POOR DATA QUALITY, INTERPRETATION MAY BE ADVERSELY AFFECTED NORMAL SINUS RHYTHM NONSPECIFIC T WAVE ABNORMALITY ABNORMAL ECG WHEN COMPARED WITH ECG OF 14-NOV-2018 01:50, QUESTIONABLE CHANGE IN QRS AXIS T WAVE INVERSION NOW EVIDENT IN ANTERIOR LEADS Confirmed by AIDEN AHUJA MD ([id number]) on 07/27/2019 1:28:59 PM Referred By: Confirmed By:AIDEN AHUJA MD
== END 2019-07-26 22:14 | disposition home or self-care (01) ==
LOC: JER 19:44
DX: K21.9 Gastro-esophageal reflux disease without esophagitis (principal); F41.9 Anxiety disorder, unspecified
CPT/HCPCS: 36415; 71046-TC-FY; 80053; 82550; 84443; 84484; 85025; 93005; 93010; 99285-25

== ENCOUNTER 2019-11-25 10:49 | Emergency (ER) | payer OTHER ==
--- NOTE | 2019-11-25 11:04 | PDOC ---
Rapid Medical Evaluation Time Seen by Provider: 11/25/19 11:02 Medical Evaluation: Allergies Allergy/AdvReac Type Severity Reaction Status Date / Time No Known Allergies Allergy Verified 11/25/19 11:02 11/25/19 11:02 Cc: Dizziness x3 weeks ago and continues with the same, pressure to left side of head, no improvement with asa Exam: vss, steady gait Plan: head ct ( not done on prev ED visit) Discharge Disposition - Diagnosis Lightheaded - Referrals - Patient Instructions - Post Discharge Activity
[2019-11-25 11:06] VITALS: BP 140/84; PULSE 63; TEMP 98.3; BMI 28.5
--- NOTE | 2019-11-25 11:50 | PDOC ---
History of Present Illness - General Chief Complaint: Head/Neck problem Stated Complaint: LFT SIDE HEADACHE Time Seen by Provider: 11/25/19 11:02 - History of Present Illness Initial Comments: 11/25/19 11:50 44 years old with past medical history significant for anemia and thyroid disease presents with 2 days of left facial burning and tingling, and 1 year of left sided cranial pressure and left eye pain on/off. Patient had multiple visit for the same complaint, had an MRi done at [facility] were she was told she had "sinus problem" for which she thinks she was given steroid and antibiotics which resolved the symptoms temporarily. Patient is extremely anxious that this is a brain tumor as she has a friend who was diagnosed with one with the same symptoms. She also states that she had an sewing inspector visit a year ago that shows decreased vision and astigmatism on the right eye. She has no fever chills no active chest pain shortness of breath nausea vomiting or diarrhea Past History - Medical History Allergies/Adverse Reactions: Allergies Allergy/AdvReac Type Severity Reaction Status Date / Time No Known Allergies Allergy Verified 11/25/19 11:02 Home Medications: Ambulatory Orders Ferrous Sulfate [Iron] 325 mg PO DAILY 07/26/18 Levothyroxine [Synthroid -] 150 mcg PO DAILY #30 tablet 07/26/19 Aspirin [ASA -] 81 mg PO DAILY 11/09/19 [place]-3 Fatty Acids/Fish Oil [Fish Oil 1,000 mg Capsule] 1 each PO DAILY 11/25/19 Zinc 50 mg PO DAILY 11/25/19 Anemia: Yes CVA: No COPD: No Psychiatric Problems: Yes (anxiety) Thyroid Disease: Yes (HYPO) - Surgical History Abdominal Surgery: Yes (gastric sleeve, tubal ligation) - Immunization History Immunization Up to Date: Yes - Psycho-Social/Smoking History Smoking History: Never smoked Have you smoked in the past 12 months: No - Substance Abuse Hx (Audit-C & DAST Scrn) How often the patient has a drink containing alcohol: Never Score: In Men: 4 or > Positive; In Women: 3 or > Positive: 0 Screen Result (Pos requires Nsg. Audit-10AR): Negative In the last yr the pt used illegal drug/Rx for NonMed reason: No Score: Yes response is considered Positive: 0 Screen Result (Positive result requires Nsg. DAST-10): Negative Review of Systems - Review of Systems Able to Perform ROS?: Yes Is the patient limited Cook Islander proficient: No Constitutional: No: Symptoms Reported HEENTM: Yes: Eye Pain. No: Blurred Vision, Tearing, Recent change in vision, Double Vision, Cataracts, Ear Pain, Tinnitus, Throat Pain, Throat Swelling Respiratory: No: Symptoms reported Cardiac (ROS): No: Symptoms Reported ABD/GI: No: Symptoms Reported : No: Symptoms Reported Musculoskeletal: No: Symptoms Reported Neurological: Yes: Headache, Numbness, Paresthesia, Tingling Psychiatric: Yes: Anxiety All Other Systems: Reviewed and Negative *Physical Exam - Vital Signs Last Vital Signs Temp Pulse Resp BP Pulse Ox 98.3 F 63 20 140/84 100 11/25/19 11:03 11/25/19 11:03 11/25/19 11:03 11/25/19 11:03 11/25/19 11:03 - Physical Exam General Appearance: Yes: Nourished, Appropriately Dressed. No: Apparent Distress HEENT: positive: EOMI, ALLEN, Normal ENT Inspection, Other (soreness on palpation of left face.) Respiratory/Chest: positive: Lungs Clear, Normal Breath Sounds. negative: Chest Tender, Respiratory Distress Cardiovascular: positive: Regular Rhythm, Regular Rate, S1, S2 Gastrointestinal/Abdominal: positive: Normal Bowel Sounds, Flat, Soft. ne gative: Tender Musculoskeletal: positive: Normal Inspection. negative: CVA Tenderness Extremity: positive: Normal Capillary Refill, Normal Inspection, Normal Range of Motion Integumentary: positive: Normal Color, Dry, Warm Neurologic: positive: Fully Oriented, Alert, Normal Mood/Affect, Normal Response ED Treatment Course - LABORATORY CBC & Chemistry Diagram: 11/25/19 12:41 11/25/19 12:41 Medical Decision Making - Medical Decision Making 11/25/19 12:28 44 years old with past medical history significant for anemia and thyroid disease presents with 2 days of left facial burning and tingling, and 1 year of left sided cranial pressure and left eye pain on/off. Cluster headache vs stroke vs trigeminal neuralgia vs anxiety vs herpes zoster vs glaucoma. Nasal Cannula O2 unsuccessful at treating pain. Will obtain CT head to rule out mass/bleed even if we have very low suspicion. Will obtain labs to evaluate chemistry/metabolic disorder 11/25/19 12:37 11/25/19 14:[address] negative., Ok to dc with ophthalmology and ENT follow up. Discharge - Discharge Information Problems reviewed: Yes Clinical Impression/Diagnosis: Lightheaded, Paresthesia, Atypical neuralgia Condition: Improved Disposition: HOME - Follow up/Referral Referrals: Keith Cross MD [Staff Physician] - Gordy Wahl MD [Primary Care Provider] - Keven Walhs MD [Staff Physician] - Stone Huston MD [Staff Physician] - - Patient Discharge Instructions Patient Printed Discharge Instructions: Trigeminal Neuralgia, Occipital Neuralgia Additional Instructions: you should follow up with a neurologist see referral for dr cross or call who you have previously set up an appointment with. you can take motrin 600 mg every 8 hours as needed for pain. you should also follow up with an opthomologist. see referal for DR Toussaint, see referal information and call to schedule at earliest convenience. your head ct today is normal. you should also follow up with ear nose and throat for your sinusitis. you can use flonase nasal spray. one spray each nostril daily. it is over the counter. see referral for Dr Huston, ENT call to schedule. - Post Discharge Activity
[2019-11-25 13:08] LABS: BASO % 0.7 % (0-2.0); EOS % 0.6 % (0-4.5); HEMATOCRIT 32.3 % (32.4-45.2); HEMOGLOBIN 10.3 GM/dL (10.7-15.3); MCH 26.7 pg (25.7-33.7); MEAN CELL VOLUME 83.3 fl (80-96); MEAN PLT VOLUME 8.5 fl (7.5-11.1); MONO % 7.5 % (3.8-10.2); NEUT % 62.2 % (42.8-82.8); PLATELET COUNT 208 K/MM3 (134-434); RBC 3.88 M/mm3 (3.60-5.2); RDW 16.9 % (11.6-15.6); WHITE BLOOD COUNT 4.5 K/mm3 (4.0-10.0)
[2019-11-25 13:12] LABS: HCG,QUALITATIVE URINE Negative
[2019-11-25 13:21] LABS: PH,URINE 7.5 (5.0-8.0); URINE APPEARANCE CLEAR; URINE BILIRUBIN NEGATIVE (NEGATIVE); URINE COLOR YELLOW; URINE GLUCOSE (UA) NEGATIVE (NEGATIVE); URINE KETONE NEGATIVE (NEGATIVE); URINE LEUK ESTERASE NEGATIVE (NEGATIVE); URINE NITRITE NEGATIVE (NEGATIVE); URINE PROTEIN NEGATIVE (NEGATIVE)
[2019-11-25 13:41] LABS: ALBUMIN 3.6 g/dl (3.4-5.0); BILIRUBIN,TOTAL 0.2 mg/dL (0.2-1); BLOOD UREA NITROGEN 12.7 mg/dL (7-18); CREATININE 0.6 mg/dL (0.55-1.3); POTASSIUM 4.2 mmol/L (3.5-5.1)
--- NOTE | 2019-11-25 13:53 | PDOC ---
Documentation entered by Chon Lott SCRIBE, acting as scribe for Rebecca Carr MD. Rebecca Carr MD: This documentation has been prepared by the Kaylie michel Xhesika, SCRIBE, under my direction and personally reviewed by me in its entirety. I confirm that the documentation accurately reflects all work, treatment, procedures, and medical decision making performed by me. Attending Attestation - Resident Resident Name: Leonardo Downing - ED Attending Attestation I have performed the following: I have examined & evaluated the patient, The case was reviewed & discussed with the resident, I agree w/resident's findings & plan, Exceptions are as noted - HPI HPI: 11/25/19 11:30 The patient is a 44y/o F with a PMH of Anemia, anxiety and hypothyroidism who presents to the ED for 2 days of left facial burning and tingling, which is new. Pt states she has been endorsing 1 year of left sided head pressure and intermittent left eye pain. Pt states her friend had similar symptoms and was concerned about a tumor. pt states she had a MRI done at [facility] in june 2019 and was tols he had a "Sinus problem" and was given abx. Pt denies any vision changes. denies any fevers, chills, cough, N/V/D. Denies any chest pain or SOB. Denies any urinary symptoms. no focal weakness, no changes to vision, has had poor vision in the left eye for many years. no trauma. no f/c no weaknes. headache described as radiating from occiptal area forward along scalp with hypersensitivity scalp and now left facial tingling. Allergies: NKDA 11/25/19 13:46 - Physicial Exam PE: 11/25/19 13:47 Awake alert no acute distress lungs are clear bilaterally heart is regular 30 murmurs rubs or gallops abdomen soft nontender extremities are warm well perfused. Neurologically patient is cranial nerves II through XII are intact face is symmetric sensation is intact throughout 5 out of 5 upper and lower extremity strength on testing. Speech is clear patient has some hyperesthesia to the left side of her face and scalp no focal tenderness over the temporal artery - Medical Decision Making 11/25/19 13:48 44-year-old female here with complaining of left scalp paresthesia-like symptoms left-sided headache periorbital pain and now left facial tingling. Symptoms sound similar to a trigeminal neuralgia or in a simple neuralgia erysipeloid headache patient does have a history of sinus disease could be contributed from TMJ or sinus pressure. Will obtain CT head to rule out any under lying intracranial pathology however less likely the patient did recently have an MRI. Basic labs to rule out any electrolyte abnormalities as a cause for her paresthesia or hyperkalemia or hypocalcemia. Patient CT head is unremarkable will recommend follow-up with neurology she has been already given a name. Will also add an additional follow-up with ophthalmology and ENT at this time patient can be discharged home told to take Motrin for her pain Discharge - Discharge Information Problems reviewed: Yes Clinical Impression/Diagnosis: Lightheaded, Paresthesia, Atypical neuralgia Condition: Improved Disposition: HOME - Admission No - Follow up/Referral Referrals: Gordy Wahl MD [Primary Care Provider] - Keith Cross MD [Staff Physician] - Stone Huston MD [Staff Physician] - Keven Walsh MD [Staff Physician] - - Patient Discharge Instructions Patient Printed Discharge Instructions: Trigeminal Neuralgia, Occipital Neuralgia Additional Instructions: you should follow up with a nuerologist see referral for dr cross or call who you have previously set up an appointemnt with. you can take motrin 600 mg every 8 hours as needed for pain. you should also follow up with an opthomologist. see referal for DR Toussaint, see referal information and call to schedule at earliest convenience. your head ct today is normal. you should also follow up with ear nose and throat for your sinusiti. you can use flonase nasal spray. one spray each nostril daily. it is over the counter. see referral for Dr Huston, ENT call to schedule. - Post Discharge Activity
== END 2019-11-25 14:20 | disposition home or self-care (01) ==
LOC: JER 10:49
DX: R42 Dizziness and giddiness (principal); M79.2 Neuralgia and neuritis, unspecified; R20.2 Paresthesia of skin
CPT/HCPCS: 36415; 70450-TC; 80053; 81003; 84703; 85025; 99284-25

== ENCOUNTER 2020-01-17 10:16 | Emergency (ER) | payer OTHER ==
[2020-01-17 10:22] VITALS: BP 129/70; PULSE 67; TEMP 98.4; BMI 29.7
[2020-01-17] MEDS ORDERED: LORazepam 0.5 MG TABLET PO ONE (10:41)
[2020-01-17] MEDS ORDERED: LORazepam 0.5 MG TABLET ONE (10:56)
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
--- NOTE | 2020-01-20 22:03 | EKG ---
Test Reason : Blood Pressure : / mmHG Vent. Rate : 062 BPM Atrial Rate : 062 BPM P-R Int : 134 ms QRS Dur : 120 ms QT Int : 420 ms P-R-T Axes : 019 031 042 degrees QTc Int : 426 ms NORMAL SINUS RHYTHM WITH SINUS ARRHYTHMIA NON-SPECIFIC INTRA-VENTRICULAR CONDUCTION DELAY BORDERLINE ECG WHEN COMPARED WITH ECG OF 09-NOV-2019 11:13, NO SIGNIFICANT CHANGE WAS FOUND Confirmed by JOJO ADAMSON MD ([id number]) on 01/20/2020 10:03:17 PM Referred By: Confirmed By:JOJO ADAMSON MD
== END 2020-01-17 11:38 | disposition home or self-care (01) ==
LOC: JERFT 10:16
DX: F41.9 Anxiety disorder, unspecified (principal)
CPT/HCPCS: 93005; 93010; 99284-25; U0003

== ENCOUNTER 2020-05-08 10:14 | Emergency (ER) | payer OTHER ==
[2020-05-08 10:20] VITALS: BP 135/88; PULSE 73; BMI 31.3
[2020-05-08 10:22] VITALS: TEMP 98.7
[2020-05-08] MEDS ORDERED: ACETAMINOPHEN/CAFFEINE/BUTALBITAL 1 TAB PO ONE (10:39)
[2020-05-08] MEDS ORDERED: KETOROLAC TROMETHAMINE 30 MG/1 ML VIAL IM ONE (10:39)
[2020-05-08] MEDS ORDERED: ACETAMINOPHEN/CAFFEINE/BUTALBITAL 1 TAB ONE (10:57)
[2020-05-08] MEDS ORDERED: KETOROLAC TROMETHAMINE 30 MG/1 ML VIAL ONE (10:58)
== END 2020-05-08 12:00 | disposition home or self-care (01) ==
LOC: JER 10:14
PROC: 3E0233Z Introduction of Anti-inflammatory into Muscle, Percutaneous Approach (ICD-10-PCS; principal; 2020-05-08)
DX: G44.209 Tension-type headache, unspecified, not intractable (principal)
CPT/HCPCS: 99284-25

== ENCOUNTER 2020-07-27 09:18 | Emergency (ER) | payer OTHER ==
[2020-07-27 09:30] VITALS: TEMP 97.9; BMI 29.7
[2020-07-27 12:31] LABS: BASO % 0.7 % (0-2.0); CHLORIDE 106 mmol/L (98-107); EOS % 0.6 % (0-4.5); HEMATOCRIT 34.8 % (32.4-45.2); HEMOGLOBIN 11.6 GM/dL (10.7-15.3); LYMPH % 30.2 % (8-40); MCH 28.6 pg (25.7-33.7); MCHC 33.3 g/dl (32.0-36.0); MEAN CELL VOLUME 85.7 fl (80-96); MONO % 7.9 % (3.8-10.2); NEUT % 60.6 % (42.8-82.8); PLATELET COUNT 193 K/MM3 (134-434); POTASSIUM 3.9 mmol/L (3.5-5.1); RBC 4.06 M/mm3 (3.60-5.2); RDW 13.9 % (11.6-15.6); SODIUM 140 mmol/L (136-145); WHITE BLOOD COUNT 4.3 K/mm3 (4.0-10.0)
[2020-07-27 12:34] LABS: ALBUMIN 3.5 g/dl (3.4-5.0); CALCIUM 8.7 mg/dL (8.5-10.1)
[2020-07-27 12:35] LABS: ANION GAP 6 MMOL/L (8-16); BLOOD UREA NITROGEN 9.9 mg/dL (7-18); CO2 28 mmol/L (21-32); GLUCOSE,RANDOM 83 mg/dL (74-106)
[2020-07-27 12:37] LABS: CREATININE 0.6 mg/dL (0.55-1.3); EPI CELLS 20 /uL (0-25.1); HYALINE CASTS 1 /uL (0-3.1); PH,URINE 7.5 (5.0-8.0); URINE APPEARANCE CLOUDY; URINE BACTERIA 939 /uL (0-1359); URINE BILIRUBIN NEGATIVE (NEGATIVE); URINE COLOR YELLOW; URINE GLUCOSE (UA) NEGATIVE (NEGATIVE); URINE KETONE NEGATIVE (NEGATIVE); URINE LEUK ESTERASE TRACE (NEGATIVE); URINE NITRITE NEGATIVE (NEGATIVE); URINE PROTEIN NEGATIVE (NEGATIVE); URINE RBC 6 /uL (0-23.9); URINE UROBILINOGEN 0.2 mg/dL (0.2-1.0); URINE WBC 37 /uL (0-25.8)
[2020-07-27 12:38] LABS: SGOT/AST 10 U/L (15-37); SGPT/ALT 12 U/L (13-61)
[2020-07-27 12:39] LABS: BILIRUBIN,TOTAL 0.3 mg/dL (0.2-1); TOT PROT 7.1 g/dl (6.4-8.2)
[2020-07-27 12:40] LABS: ALK PHOS 44 U/L (45-117)
[2020-07-27 14:58] VITALS: BP 120/76; PULSE 56
== END 2020-07-27 15:05 | disposition home or self-care (01) ==
LOC: JER 09:18
DX: E03.9 Hypothyroidism, unspecified (principal)
CPT/HCPCS: 36415; 71046-TC-FY; 80053; 81003; 82550; 84439; 84443; 84481; 84484; 85025; 93005; 93010; 99285-25

== ENCOUNTER 2020-09-29 10:43 | Emergency (ER) | payer OTHER ==
[2020-09-29 10:59] VITALS: BP 139/88; PULSE 69; TEMP 98.6; BMI 31.3
[2020-09-29] MEDS ORDERED: MAG HYDROX/AL HYDROX/SIMETH -MYLANTA- ORAL SUSPENSION PO ONE (12:14)
[2020-09-29] MEDS ORDERED: hydrOXYzine PAMOATE 25 MG CAPSULE (FP) PO ONE ×2 (12:14→12:27)
[2020-09-29] MEDS ORDERED: MAG HYDROX/AL HYDROX/SIMETH 30 ML UNIT-DOSE CUP ONE (12:27)
[2020-09-29 13:00] LABS: BASO % 0.8 % (0-2.0); EOS % 0.5 % (0-4.5); HEMATOCRIT 35.9 % (32.4-45.2); HEMOGLOBIN 11.6 GM/dL (10.7-15.3); MCH 27.3 pg (25.7-33.7); MCHC 32.4 g/dl (32.0-36.0); MEAN CELL VOLUME 84.3 fl (80-96); MEAN PLT VOLUME 9.4 fl (7.5-11.1); NEUT % 60.7 % (42.8-82.8); PLATELET COUNT 229 K/MM3 (134-434); RBC 4.26 M/mm3 (3.60-5.2); WHITE BLOOD COUNT 4.3 K/mm3 (4.0-10.0)
[2020-09-29 13:17] LABS: CHLORIDE 104 mmol/L (98-107); SODIUM 138 mmol/L (136-145)
[2020-09-29 13:19] LABS: CALCIUM 9.2 mg/dL (8.5-10.1)
[2020-09-29 13:20] LABS: ALBUMIN 4.1 g/dl (3.4-5.0); ANION GAP 5 MMOL/L (8-16); BLOOD UREA NITROGEN 9.6 mg/dL (7-18); CO2 28 mmol/L (21-32); GLUCOSE,RANDOM 83 mg/dL (74-106); MAGNESIUM 2.1 mg/dL (1.8-2.4)
[2020-09-29 13:23] LABS: CREATININE 0.7 mg/dL (0.55-1.3); SGOT/AST 12 U/L (15-37); SGPT/ALT 14 U/L (13-61)
[2020-09-29 13:24] LABS: BILIRUBIN,TOTAL 0.4 mg/dL (0.2-1)
[2020-09-29 13:25] LABS: TOT PROT 8.1 g/dl (6.4-8.2)
[2020-09-29 13:26] LABS: ALK PHOS 54 U/L (45-117); PROTHROMBIN TIME (PATIENT) 12.3 SEC (9.7-13.0)
[2020-09-29 13:29] LABS: ACTIVATED PTT 29.6 SECONDS (25.2-36.5)
== END 2020-09-29 14:10 | disposition home or self-care (01) ==
LOC: JER 10:43
DX: R07.89 Other chest pain (principal)
CPT/HCPCS: 36415; 71046-TC-FY; 80053; 82550; 83735; 84439; 84443; 84484; 85025; 85379; 85610; 85730; 93005; 93010; 99285-25